=== PATIENT | female | born 1945 | race Caucasian/White ===

== ENCOUNTER 2019-03-05 12:52 | Outpatient (CLI) | payer MEDICARE | END 2019-03-05 12:53 | disposition home or self-care (01) | LOC: EMS 12:52 | PROVIDERS: ATTEND Surgery | DX: R10.10 Upper abdominal pain, unspecified (principal) | CPT/HCPCS: A0425; A0427 ==

== ENCOUNTER 2019-03-05 13:10 | Emergency (ER) | payer MEDICARE ==
[2019-03-05] MEDS ORDERED: LIDOCAINE VISCOUS 2% 15 ML UDC MM STA (13:20)
[2019-03-05] MEDS ORDERED: MAG HYDROX/AL HYDROX/SIMETH 30 ML UDC PO STA (13:20)
--- NOTE | 2019-03-05 13:22 | ED Physician Documentation ---
PD HPI ABD PAIN - Stated complaint Stated Complaint: ABD PX - Chief complaint Chief Complaint: Abd Pain - History obtained from History obtained from: Patient, EMS (73-year-old woman with history of Little's esophagus, remote cholecystectomy and hysterectomy presents with sudden onset epigastric pain about 45 minutes ago that was severe and is now improving after belching. She did not receive any medications on the way in. She had a sli ghtly hard bowel movement this morning. She was nauseous but did not vomit. No chest pain or trouble breathing.) - History of Present Illness Timing - onset: Today Review of Systems Constitutional: denies: Fever, Chills Cardiac: denies: Chest pain / pressure, Palpitations Respiratory: denies: Dyspnea, Cough GI: reports: Abdominal Pain, Nausea. denies: Vomiting, Constipation, Diarrhea, Hematemesis, Bloody / black stool PD PAST MEDICAL HISTORY - Present Medications Home Medications: Ambulatory Orders Medication Instructions Recorded Confirmed Lactobacillus Acidophilus DAILY 03/05/19 [Probiotic Acidophilus] Levothyroxine [Synthroid] 75 mcg PO DAILY 03/05/19 03/05/19 raNITIdine [Zantac] 150 mg PO DAILY 03/05/19 03/05/19 - Allergies Allergies/Adverse Reactions: Allergies Allergy/AdvReac Type Severity Reaction Status Date / Time bee pollen Allergy Rash Verified 03/05/19 13:22 celecoxib [From Celebrex] Allergy Rash Verified 03/05/19 13:22 ciprofloxacin [From Cipro] Allergy Rash Verified 03/05/19 13:22 meclizine [From Antivert] Allergy Rash Verified 03/05/19 13:22 nitrofurantoin Allergy Rash Verified 03/05/19 13:22 [From Macrobid] sulfamethoxazole Allergy Rash Verified 03/05/19 13:22 [From Bactrim] trimethoprim [From Bactrim] Allergy Rash Verified 03/05/19 13:22 PD ED PE NORMAL - Vitals Vital signs reviewed: Yes - General General: Alert and oriented X 3, No acute distress - HEENT HEENT: PERRL, EOMI - Neck Neck: Supple, no meningeal sign, No bony TTP - Cardiac Cardiac: RRR, No murmur - Respiratory Respiratory: No respiratory distress, Clear bilaterally - Abdomen Abdomen: Other (Slightly hyperactive bowel tones, soft and there is no tenderness.) - Back Back: No CVA TTP, No spinal TTP - Derm Derm: Normal color, Warm and dry - Extremities Extremities: No edema, No calf tenderness / cord - Neuro Neuro: Alert and oriented X 3, Normal speech Results - Vitals Vitals: Vital Signs - 24 hr 03/05/19 03/05/19 13:17 13:59 Temperature 36.2 C L Heart Rate 60 60 Respiratory 18 18 Rate Blood Pressure 113/68 114/68 O2 Saturation 99 99 Oxygen O2 Source Room air - Labs Labs: Laboratory Tests 03/05/19 03/05/19 03/05/19 13:40 13:40 13:40 WBC 10.2 RBC 3.88 L Hgb 11.8 L Hct 36.5 L MCV 94.1 MCH 30.4 MCHC 32.3 RDW 13.3 Plt Count 227 MPV 9.4 Neut # (Auto) 7.5 H Lymph # (Auto) 1.5 Collier # (Auto) 0.9 Eos # (Auto) 0.1 Baso # (Auto) 0.1 Absolute Nucleated RBC 0.00 Nucleated RBC % 0.0 Sodium 140 Potassium 4.0 Chloride 106 Carbon Dioxide 25 Anion Gap 9.0 BUN 20 Creatinine 0.9 Estimated GFR (MDRD) 62 L Glucose 125 H Calcium 8.7 Total Bilirubin 0.7 AST 97 H ALT 39 Alkaline Phosphatase 134 H Troponin I High Sens 13.2 Total Protein 6.4 L Albumin 3.6 Globulin 2.8 Albumin/Globulin Ratio 1.3 Lipase 26 PD MEDICAL DECISION MAKING - ED course ED course: 73-year-old with acute onset epigastric pain. She is not tender. Prehospital EKG showed a paced rhythm with negative Sgarbossa criteria, high-sensitivity troponin negative. Pain completely resolved with the administration of GI cocktail. Labs noted, she does have a history of mild anemia. On reexamination prior to discharge she was pain-free and remains nontender. Departure - Departure Disposition: 01 Home, Self Care Clinical Impression: Gastritis Qualifiers: Gastritis type: unspecified gastritis Chronicity: acute Gastritis bleeding: without bleeding Qualified Code(s): K29.00 - Acute gastritis without bleeding Condition: Good Record reviewed to determine appropriate education?: Yes Instructions: ED Gastritis Comments: Start taking your Prilosec today and take it for at least a week. Light diet for the next couple of days. Return if symptoms recur or for new or worsening symptoms. Follow-up with your doctor on return home.
[2019-03-05 13:52] LABS: BASOPHILS # (AUTO) 0.1 10^3/uL (0.0-0.1); BASOPHILS % (AUTO) 0.8 %; EOSINOPHILS # (AUTO) 0.1 10^3/uL (0.0-0.7); HGB - HEMOGLOBIN 11.8 g/dL (12.0-16.0); LYMPHOCYTES # (AUTO) 1.5 10^3/uL (1.5-3.5); LYMPHOCYTES % (AUTO) 14.7 %; MEAN CORPUSCULAR HEMOGLOBIN 30.4 pg (27.0-31.0); MEAN CORPUSCULAR HGB CONC 32.3 g/dL (32.0-36.0); MEAN CORPUSCULAR VOLUME 94.1 fL (81.0-99.0); MEAN PLATELET VOLUME 9.4 fL (7.9-10.8); MONOCYTES # (AUTO) 0.9 10^3/uL (0.0-1.0); MONOCYTES % (AUTO) 8.9 %; NEUTROPHILS # (AUTO) 7.5 10^3/uL (1.5-6.6); PLT - PLATELET COUNT 227 10^3/uL (130-450); RED BLOOD COUNT 3.88 10^6/uL (4.20-5.40); RED CELL DISTRIBUTION WIDTH 13.3 % (12.0-15.0); WHITE BLOOD COUNT 10.2 x10^3/uL (4.8-10.8)
[2019-03-05 14:00] VITALS: BP 114/68
[2019-03-05 14:09] LABS: ALBUMIN 3.6 g/dL (3.2-5.5); ALBUMIN/GLOBULIN RATIO 1.3 (1.0-2.2); BILIRUBIN,TOTAL 0.7 mg/dL (0.2-1.0); CALCIUM 8.7 mg/dL (8.5-10.3); CREATININE 0.9 mg/dL (0.4-1.0); TOTAL PROTEIN 6.4 g/dL (6.7-8.2)
== END 2019-03-05 14:30 | disposition home or self-care (01) ==
LOC: EDBD → ED 13:10
DX: K29.00 Acute gastritis without bleeding (principal)
CPT/HCPCS: 36415; 80053; 83690; 84484; 85025; 99283; 99284; A9270